=== PATIENT | male | born 1975 | race Caucasian/White ===

== ENCOUNTER → 2025-05-05 09:07 | Outpatient (REF) | payer OTHER, SELFPAY | LOC: HWRCS 09:07 | PROVIDERS: ATTENDING PHYSICIAN Internal Medicine Cardiovascular Disease; FAMILY PHYSICIAN Family Medicine | DX: R07.89 Other chest pain (principal) | CPT/HCPCS: 93306 ==

== ENCOUNTER → 2025-05-10 08:12 | Outpatient (REF) | payer OTHER, SELFPAY | LOC: RCS 08:12 | PROVIDERS: ATTENDING PHYSICIAN Internal Medicine Cardiovascular Disease; FAMILY PHYSICIAN Family Medicine | DX: R07.89 Other chest pain (principal) | CPT/HCPCS: 93017; 93350 ==

== ENCOUNTER 2025-07-14 06:24 | Day surgery (SDC) | payer OTHER, SELFPAY | END 2025-07-14 12:32 | disposition home or self-care (01) | LOC: GI 06:24 | PROVIDERS: ATTENDING PHYSICIAN Student in an Organized Health Care Education/Training Program | DX: Z12.11 Encounter for screening for malignant neoplasm of colon (principal); D12.2 Benign neoplasm of ascending colon; K63.89 Other specified diseases of intestine; K63.5 Polyp of colon; K29.80 Duodenitis without bleeding; Q40.2 Other specified congenital malformations of stomach; R07.89 Other chest pain; K22.89 Other specified disease of esophagus; K31.89 Other diseases of stomach and duodenum; K20.0 Eosinophilic esophagitis | CPT/HCPCS: 45380; 43239; 88305; 88342 ==